=== PATIENT | female | born 1975 | race Caucasian/White ===

== ENCOUNTER → 2023-10-07 06:28 | Day surgery (SDC) | payer OTHER, SELFPAY | LOC: GI 06:28 | PROVIDERS: ATTENDING PHYSICIAN Internal Medicine Gastroenterology | DX: Z12.11 Encounter for screening for malignant neoplasm of colon (principal); K62.1 Rectal polyp | CPT/HCPCS: 45380; 88305 ==

== ENCOUNTER 2024-06-23 08:12 | Emergency (ER) | payer MEDICARE, SELFPAY ==
[2024-06-23 08:12] VITALS: BMI 21.9
[2024-06-23 08:26] VITALS: BP 122/81
[2024-06-23 09:34] VITALS: BP 98/61
--- NOTE | 2024-06-23 09:51 | ED.GENMED ---
History of Present Illness
General
Chief Complaint: Eye Problems
Source: patient and spouse
Exam Limitations: none
Time Seen by Provider: 06/23/24 09:00
Nursing documentation reviewed up to this point in time: agreed with
History of Present Illness
History of Present Illness:
49-year-old female presenting to the emergency department today with concerns of blurred vision to her left eye over the past week or so worsening over the past 24 hours also has a headache currently described as pressure but had a somewhat severe
episode lasting a few minutes yesterday to the central portion of her head. Denies similar symptoms in the past no history of migraines or headache syndromes.
Past History
Past History
ED Past Medical History: Other (Gallbladder was sludge, Rh-, endometriosis)
ED Past Surgical History: and Gynecological (Laparscopic surgery)
Social History
Tobacco: Non-smoker
Alcohol: None
Drug: None
Personal:
Living: with family
Employment: Employed
Family History
Family History: Hypertension
Review of Systems
Review of Systems
Allergies reviewed?: Yes
All Other Systems: ROS reviewed and negative except as documented in HPI and ROS
Phy Exam
Physical Exam
Physical Exam:
GENERAL: Alert , in no apparent distress
EYE: pupils equal and reactive
NECK: Supple, no significant adenopathy.
ENT: o/p clr, mmm.
CARDIAC: Regular rate and rhythm .
LUNGS: Clear breath sounds bilaterally, no acute respiratory distress, no wheezes/rales/rhonchi
ABDOMEN: Soft, without focal tenderness, no r/g, no cvat
NEUROLOGICAL: Alert and oriented, no focal neuro deficits
SKIN: Warm and dry, skin intact.
MUSCULOSKELETAL: No edema, well perfused.
PSYCH: Normal and appropriate interaction.
Course
Orders/Labs/Results
Orders:
Orders
06/23/24 09:18
CT Head & Neck Angio W/wo IV Urgent
Comment:
Reason For Exam: E[place]O severe, blurred vision left side, fam hx of bra
06/23/24 09:21
Test Result ONCE
06/23/24 09:35
Beta Hcg Serum Qualitative Screen [HCG, Serum Qualitative Screen] Urgent
CBC/With Diff [Complete Blood Count/With Diff] Urgent
CMP [Comprehensive Metabolic Panel] Urgent
06/23/24 12:00
Ketorolac [Toradol] 30 mg IV NOW STA
Abnormal Lab Results
06/23/24
09:35
WBC 4.0 L 10^3/uL
(4.8-10.8)
Hgb 10.2 L g/dL
(12.0-16.0)
Hct 32.9 L %
(37.0-47.0)
MCV 72.6 L fL
(81.0-99.0)
MCH 22.5 L pg
(27.0-31.0)
MCHC 31.0 L g/dL
(33.0-37.0)
BUN 22 H mg/dl
(7-17)
Alkaline Phosphatase 152 H U/L
(38-126)
06/23/24 09:35
06/23/24 09:35
Vital Signs
Initial and Last Documented VS:
Initial Vital Signs
Temp Pulse Resp BP Pulse Ox
98.2 F 68 16 122/81 98
06/23/24 08:26 06/23/24 08:26 06/23/24 08:26 06/23/24 08:26 06/23/24 08:26
Last Documented Vital Signs
Temp Pulse Resp BP Pulse Ox
98.2 F 73 18 119/78 98
06/23/24 08:26 06/23/24 11:04 06/23/24 11:04 06/23/24 12:00 06/23/24 12:00
MDM/Problems Addressed
MDM/Problems Addressed:
49-year-old female presenting to the emergency department today with concerns of left-sided blurred vision over the past week with associated headache severe yesterday but currently mild and described as pressure. Patient was specifically concerned
that her mother 2 brain aneurysms in her 40s. Here vital signs are normal patient in no distress normal neurologic evaluation. Her left visual acuity was 20/40 where her right side was normal. She denies any known visual acuity issues with the
left eye previously. CT angiogram without acute abnormalities. Patient claims symptoms very minimal at this point she will follow-up closely with the eye doctor but otherwise no emergent findings return precautions given.
*Critical Care Note
Total Time (30-74mins, 75-104mins- exclusive of procedures): Not Applicable
ED Attending Note
-
Portions of this chart may have been created with voice recognition software.� Occasional wrong word or��sound alike� substitutions may have occurred due to the inherent limitations of voice recognition software.
Discharge Plan
Departure
Patient Disposition: Home (Routine Discharge)
Date of Disposition: 06/23/24
Time of Disposition: 12:21
Patient with high blood pressure during this ER visit?: No
Condition: Good
Covid-19: Not Applicable
Discharge Problem:
Headache, Blurred vision, left eye
Instructions: Headache, Adult ED
Prescriptions:
No Action
semaglutide (weight loss) 0.25 mg/0.5 mL Pen Injector
0.25 mg SC TU
Referrals:
Veena Arrington MD [Active] - Follow up in 5-7 days
UNKNOWN - PT DOES,NOT KNOW [Family Provider] -
Activity Restrictions/Additional Instructions:
You came to the emergency department today with concerns of headache and vision changes to the left eye. You had a normal CT angiogram and labs. Please follow closely with the eye doctor. Return to the emergency department for any worsening, new
or concerning symptoms.
Interventions
Interventions:
*Risk Screen - Suicide Last Done: 06/23/24 08:26
*General Assessment Last Done: 06/23/24 08:26
*Neglect/Abuse Screening Last Done: 06/23/24 08:26
*ED COVID-19 Vaccine History Last Done: 06/23/24 08:47
Discharge Date and Time
Print Language: [id number]
[2024-06-23 09:53] LABS: % Eosinophils 1.5 % (0-6); % Immature Granulocytes 0.3 % (0-0.5); % Lymphocytes 32.2 % (20.5-51.1); Absolute Eosinophils 0.1 10^3/uL (0-0.7); Absolute Lymphocytes 1.3 10^3/uL (1.2-3.4); Absolute Monocytes 0.4 10^3/uL (0.1-0.6); Absolute Neutrophils 2.2 10^3/uL (1.4-6.5); Hematocrit 32.9 % (37.0-47.0); Hemoglobin 10.2 g/dL (12.0-16.0); Mean Corpuscular Hgb 22.5 pg (27.0-31.0); Mean Corpuscular Volume 72.6 fL (81.0-99.0); Mean Platelet Volume 9.9 fL (7.4-10.4); Nucleated Red Blood Cells % 0 %; Platelet Count 264 10^3/uL (130-400); Red Blood Cell Count 4.53 10^6/uL (4.20-5.40); Red Cell Dist. Width 14.4 % (11.5-14.5)
[2024-06-23 10:01] LABS: HCG, Serum Qualitative Screen Negative
[2024-06-23 10:12] LABS: ALT (SGPT) 21 U/L (0-35); AST (SGOT) 30 U/L (14-36); Albumin 4.8 g/dl (3.5-5.0); Alkaline Phosphatase 152 U/L (38-126); Blood Urea Nitrogen 22 mg/dl (7-17); Calcium 9.8 mg/dl (8.4-10.2); Carbon Dioxide 24 mmol/L (22-30); Chloride 104 mmol/L (98-107); Estimated Creatinine Clearance 77 ml/min; Glucose 91 mg/dl (70-99); Potassium 4.5 mmol/L (3.5-5.1); Sodium 139 mmol/L (135-145); Total Bilirubin 0.4 mg/dl (0.2-1.3); Total Protein 7.4 g/dl (6.3-8.2); eGFR > 60.00
[2024-06-23 10:21] VITALS: BP 108/75
[2024-06-23 11:00] VITALS: BP 121/80
[2024-06-23 12:00] VITALS: BP 119/78
[2024-06-23] MEDS: TORADOL 30 MG IV (12:08)
== END 2024-06-23 12:35 | disposition home or self-care (01) ==
LOC: EMR 08:12
PROVIDERS: Physician Assistant; EMERGENCY PHYSICIAN Emergency Medicine
DX: R51.9 Headache, unspecified (principal); H53.8 Other visual disturbances
CPT/HCPCS: 99284; 96374; 70496; 70498; 80053; 84703; 85025; Q9967